=== PATIENT | female | born 1975 | race African-American/Black ===

== ENCOUNTER 2018-05-20 20:58 | Emergency (ER) | payer OTHER ==
[~2018-05-20] VITALS: Ht 175.3 cm; Wt 115.7 kg
[~2018-05-20 20:58] MED LIST: FLEXERIL PO; LOESTRIN FE 1.1 EACH PO
[2018-05-20 22:20] VITALS: BP 158/96
== END 2018-05-20 22:21 | disposition home or self-care (01) ==
LOC: ER 20:58
DX: M25.462 Effusion, left knee (principal)